=== PATIENT | female | born 1990 | race Caucasian/White ===

== ENCOUNTER 2023-09-23 19:30 | Emergency (ER) | payer OTHER, SELFPAY ==
[2023-09-23 19:31] VITALS: BP 164/79; PULSE 90; RESP 18; TEMP 36.6; O2SAT 98; BMI 52.4
[2023-09-23 20:01] VITALS: BP 145/71; PULSE 80; RESP 18; O2SAT 98
--- NOTE | 2023-09-23 20:07 | CT_ITS ---
PROCEDURE INFORMATION: Exam: CT Abdomen And Pelvis With Contrast Exam date and time: 09/23/2023 9:28 PM Age: 33 years old Clinical indication: Abdominal pain; Additional info: Rlq abd pain TECHNIQUE: Imaging protocol: Computed tomography of the abdomen and pelvis with contrast. Radiation optimization: All CT scans at this facility use at least one of these dose optimization techniques: automated exposure control; mA and/or kV adjustment per patient size (includes targeted exams where dose is matched to clinical indication); or iterative reconstruction. Contrast material: ISOVUE; Contrast volume: 75 ml; Contrast route: IV; COMPARISON: No relevant prior studies available. FINDINGS: Liver: Normal. No mass. Gallbladder and bile ducts: Postsurgical changes of cholecystectomy. Pancreas: Normal. No ductal dilation. Spleen: Normal. No splenomegaly. Adrenal glands: Normal. No mass. Kidneys and ureters: Normal. No hydronephrosis. Stomach and bowel: Unremarkable. No obstruction. No mucosal thickening. Appendix: No evidence of appendicitis. Intraperitoneal space: Unremarkable. No free air. No significant fluid collection. Vasculature: Unremarkable. No abdominal aortic aneurysm. Lymph nodes: Unremarkable. No enlarged lymph nodes. Urinary bladder: Unremarkable as visualized. Reproductive: Unremarkable as visualized. Bones/joints: Degenerative changes. No acute fracture. Soft tissues: Tiny fat containing umbilical hernia. IMPRESSION: No acute findings. No evidence of acute appendicitis.
--- NOTE | 2023-09-23 20:09 | [facility].EDGENADL ---
Discharge Plan Disposition Patient Disposition: Home, Self-Care Prescriptions Prescriptions: New ondansetron 4 mg tablet,disintegrating 4 mg PO Q6H PRN (Reason: nausea and vomiting) 5 Days Qty: 20 0RF No Action albuterol sulfate 90 mcg/actuation HFA aerosol inhaler 2 puff inhalation Q6H PRN (Reason: shortness of breath or wheezing) Qty: 8.5 10RF Rx Instructions: please provide spacer budesonide-formoterol [Symbicort] 160-4.5 mcg/actuation HFA aerosol inhaler 2 puff inhalation BID Qty: 10.2 12RF Rx Instructions: please provide instructions for spacer methylprednisolone [Medrol (Chris)] 4 mg tablets,dose pack See Rx Instructions PO PER PKG DIR Qty: 21 0RF Rx Instructions: PO PER PKG DIR cholecalciferol (vitamin D3) 50 mcg (2,000 unit) capsule 50 mcg PO DAILY Qty: 90 3RF dicyclomine 10 mg capsule 10 mg PO DAILY Qty: 90 3RF loratadine [Allergy Relief (loratadine)] 10 mg tablet 10 mg PO DAILY Qty: 90 3RF metoprolol succinate 50 mg tablet extended release 24 hr 50 mg PO DAILY Qty: 90 3RF omeprazole 40 mg capsule,delayed release(DR/EC) 40 mg PO DAILY Qty: 90 3RF Referrals Follow up/Referrals: Charles Herrera MD [Primary Care Provider] - See instructions Activity Restrictions/Add. Instructions Additional Instructions/Restrictions: No emergent medical condition identified today on your diagnostic evaluation. There remains some diagnostic uncertainty please follow-up with primary care doctor as needed. No obvious evidence of any inflammatory pathology on your CT scan specifically no evidence of appendicitis. Please take your nausea medicine Tylenol and ibuprofen return to the emergency department in 12 to 24 hours with any significant worsening of her symptoms high fevers or other concerns. Clinical Impressions Clinical Impression: Abdominal pain, RLQ, Nausea & vomiting Instructions Patient Instructions: DI for Acute Abdominal Pain Discharge ED Provider: Federico West General Adult HPI General Chief complaint: Abdominal Pain Stated complaint: RT side abd pain radiating to back Time Seen by Provider: 09/23/23 20:04 Mode of Arrival: Ambulatory Source of Information: Patient Limitations: No Limitations Description of Symptoms (Recalled from ER Triage Doc. by RN): Pt presents with right lower abdomen pain that began yesterday associated ith nausea and 2 episodes of vomiting, this evening the pain began to radiate into her lower right lumbar area. History of Present Illness HPI narrative: Patient is a 33-year-old female present today with right upper and right lower quadrant abdominal pain has been more slowly worsening over the last 24 hours. States she has had associated nausea vomiting no changes in bowel movements or urination. Has had a cholecystectomy in the past. Still has her appendix. She has not any vaginal bleeding or any other complaints from the standpoint. Related Data Previous Rx's Medication Instructions Recorded albuterol sulfate 90 mcg/actuation 2 puff inhalation Q6H PRN 09/18/23 aerosol inhaler shortness of breath or wheezing #8.5 grams budesonide-formoterol HFA 160 2 puff inhalation BID #10.2 grams 09/18/23 mcg-4.5 mcg/actuation aerosol inhaler (Symbicort) cholecalciferol (vitamin D3) 50 50 mcg PO DAILY #90 caps 09/18/23 mcg (2,000 unit) capsule dicyclomine 10 mg capsule 10 mg PO DAILY #90 caps 09/18/23 loratadine 10 mg tablet (Allergy 10 mg PO DAILY #90 tabs 09/18/23 Relief (loratadine)) methylprednisolone 4 mg tablets in See Rx Instructions PO PER PKG DIR 09/18/23 a dose pack (Medrol (Chris)) #21 tabs metoprolol succinate 50 mg 50 mg PO DAILY #90 tabs 09/18/23 tablet,extended release 24 hr omeprazole 40 mg capsule,delayed 40 mg PO DAILY #90 caps 09/18/23 release ondansetron 4 mg disintegrating 4 mg PO Q6H PRN nausea and 09/23/23 tablet vomiting 5 days #20 tabs Allergies Allergy/AdvReac Type Severity Reaction Status Date / Time amoxicillin Allergy Unknown Verified 09/18/23 09:39 Penicillins Allergy Unknown Verified 09/18/23 09:39 [facility] Disclaimer: The information contained in this section may have been updated after the patient was seen, as this information can be updated by other users. Medical History (Updated 09/23/23 @ 22:05 by Federico West MD) No significant medical problems Surgical History (Updated 09/18/23 @ 09:44 by JOSE MARIA Martell) History of cholecystectomy Social History (Updated 09/18/23 @ 09:44 by JOSE MARIA Martell) Smoking Status: Unknown if ever smoked alcohol intake: never current occupational status: employed and other Travel in the last 8 weeks: None ROS Obtained: Yes All systems reviewed & no additional complaints except as documented Physical Exam General General appearance: alert Respiratory Respiratory exam: Present normal lung sounds bilaterally Cardiovascular Cardiovascular exam: Present regular rate Abdominal Exam Abdominal exam: Present other (MaximalRight lower quadrant tenderness palpation patient is tenderness there is no rebound or guarding masses etc. for) Neurological Exam Neurological exam: Present alert Medical Decision Making Ashwin Inquiry Pt receiving controlled substance: No Vital Signs: 09/23/23 19:31 09/23/23 20:01 Temperature 97.8 F Temperature Source Oral Pulse Rate 80 Pulse Rate [Left] 90 Respiratory Rate 18 18 Blood Pressure 145/71 H Blood Pressure [Right Arm] 164/79 H Blood Pressure Mean 99 Blood Pressure Mean [Right Arm] 107 Blood Pressure Source [Right Arm] Automatic Cuff Blood Pressure Position [Right Arm] Sitting 02 Sat by Pulse Oximetry 98 98 Oxygen Delivery Method Room Air Room Air Lab Data Lab results reviewed: Yes I reviewed the patient's lab results. Lab Results 09/23/23 21:00: WBC 16.2 H, RBC 4.89, Hgb 13.1, Hct 38.7, MCV 79.0 L, MCH 26.8 L, MCHC 34.0, RDW 15.1, Plt Count 364, MPV 7.8, Neut % (Auto) 68.0, Lymph % (Auto) 24.9, [place] % (Auto) 3.7, Eos % (Auto) 2.8, Baso % (Auto) 0.7, Neut # (Auto) 11.0 H, Lymph # (Auto) 4.0, [place] # (Auto) 0.6, Eos # (Auto) 0.5 H, Baso # (Auto) 0.1, Total Counted 100, Neutrophils % (Manual) 70, Lymphocytes % (Manual) 24, Monocytes % (Manual) 5, Eosinophils % (Manual) 1, Platelet Estimate Normal, Microcytosis 1+, Sodium 136, Potassium 3.6, Chloride 104, Carbon Dioxide 25, Anion Gap 10.6, BUN 15, Creatinine 0.60, Estimated Creat Clear 125, Estimated GFR 115, Est GFR ( Amer) 139, Glucose 84, Calcium 8.1 L, Total Bilirubin 0.7, AST 31, ALT 29, Alkaline Phosphatase 62, Total Protein 6.5, Albumin 3.6, Globulin 2.9, Albumin/Globulin Ratio 1.2, Serum HCG, Qual Negative 09/23/23 21:10: Urine Color Yellow, Urine Appearance Clear, Urine pH 6.0, Ur Specific Johnson 1.025, Urine Protein Negative, Urine Glucose (UA) Negative, Urine Ketones Negative, Urine Blood Negative, Urine Nitrate Negative, Urine Bilirubin Negative, Urine Urobilinogen 0.2, Ur Leukocyte Esterase Negative, Urine RBC None, Urine WBC None, Ur Squamous Epith Cells 3-5, Urine Bacteria Trace 09/23/23 21:00 09/23/23 21:00 Orders (Tests/Meds): ED MEDICATIONS Generic Name Dose Route Start Last Admin Trade Name Freq PRN Reason Stop Dose Admin Sodium Chloride 10 ml 09/23/23 21:34 09/23/23 21:35 Sodium Chloride 0.9% 10ml Syr (Rad Only) IV 10/23/23 21:33 10 ml NEEDED PRN Administration Maintain IV Site Discontinued Medications Generic Name Dose Route Start Last Admin Trade Name Freq PRN Reason Stop Dose Admin Lactated Ringer's 1,000 mls @ 999 mls/hr 09/23/23 20:15 09/23/23 20:17 Lactated Ringer's 1000 Ml Bag IV 09/23/23 21:15 999 mls/hr .Q1H1M RADHA Administration Iopamidol 75 ml 09/23/23 21:34 09/23/23 21:35 Iopamidol-370 (76%);100ml Bottle IV 09/23/23 21:35 75 ml ONCE ONE Administration Morphine Sulfate 4 mg 09/23/23 20:07 09/23/23 20:17 Morphine 4mg/Ml Syringe IV 09/23/23 20:08 4 mg ONCE ONE Administration Ondansetron HCl 4 mg 09/23/23 20:07 09/23/23 20:17 Ondansetron 4mg/2ml Vial IV 09/23/23 20:08 4 mg ONCE ONE Administration ORDERS Category Date Time Status CT abdomen pelvis w con Stat Cat Scan 09/23/23 20:07 Completed CBC w/Auto Diff [Complete Blood Count Auto Diff] Stat Lab 09/23/23 21:00 Completed CMP [Comprehensive Metabolic Panel] Stat Lab 09/23/23 21:00 Completed HCG Qualitative, Serum Stat Lab 09/23/23 21:00 Completed UA [Urinalysis and Microscopic] Stat Lab 09/23/23 21:10 Completed Medical Decision Narrative: 33-year-old female initially presenting with what she describes right upper quadrant abdominal pain but on palpation she is maximally tender in the right lower quadrant. She has no urinary symptoms she has not had any bowel changes. Differential includes terminal ileitis, appendicitis, mesenteric adenitis, bowel obstruction, bowel gas pain. Gastroenteritis etc. Will get a CT scan for further evaluation IV fluids pain medicine nausea medicine has been administered will reassess. Reassessment 10:02 PM patient was feeling significantly better but still has a little bit of abdominal discomfort serial abdominal exam is benign at this point. CT scan performed at person interpreted also looked at radiology read and there is no evidence of any acute abnormality specifically no evidence of appendicitis or any other inflammatory condition. There is a nonspecific leukocytosis. Urinalysis unremarkable other than a leukocytosis no other abnormality on the labs. This is possibly viral in nature and spasmodic. No further emergent medical testing or treatment is needed at the moment. Zofran will be prescribed she has been advised to take Tylenol and ibuprofen follow-up with primary care doctor and return with any worsening symptoms. Critical Care Critical Care Time Critical Care Time: No
[2023-09-23] MEDS: MORPHINE 4MG/ML SYRINGE 4 MG IV (20:17)
[2023-09-23] MEDS: ONDANSETRON 4MG/2ML VIAL 4 MG IV (20:17)
[2023-09-23] MEDS: LACTATED RINGERS 1000ML 1,000 ML 999 ML IV (20:17)
[2023-09-23 21:20] LABS: Chloride 104 mmol/L (98-107); HCG Qualitative, Serum Negative (Negative); Potassium 3.6 mmoL/L (3.5-5.1); Sodium 136 mmol/L (136-145)
[2023-09-23 21:23] LABS: Alanine Aminotransferase 29 U/L (12-78); Albumin Level 3.6 g/dl (3.5-5.0); Albumin/Globulin Ratio 1.2 (1.1-1.8); Alkaline Phosphatase 62 U/L (38-126); Anion Gap 10.6 mEq/L (5-15); Aspartate Amino Transferase 31 U/L (14-36); Bilirubin,Total 0.7 mg/dl (0.2-1.3); Blood Urea Nitrogen 15 mg/dl (7-17); Calcium 8.1 mg/dl (8.4-10.2); Carbon Dioxide 25 mmol/L (22.0-30.0); Creatinine Clearance Estimated 125 mL/min (50-200); Estimated Glomerular Filt Rate 115 ml/min (>60); GFR (African American) 139 ML/MIN (>60); Globulin 2.9 g/dL (1.3-3.2); Glucose 84 mg/dl (74-100); Total Protein,Serum 6.5 g/dl (6.3-8.2)
[2023-09-23 21:27] LABS: Microscopic, Urine URINE MICROSCOPIC (MICROSCOPIC)
[2023-09-23 21:27] LABS: Basophils # 0.1 K/mm3 (0-0.2); Basophils % 0.7 % (0.1-2.0); Eosinophils # 0.5 K/mm3 (0.0-0.4); Eosinophils % 2.8 % (0.1-12.0); Hematocrit 38.7 % (37.0-47.0); Hemoglobin 13.1 g/dL (12.2-16.2); Lymphocytes % 24.9 % (10-50); Mean Corpuscular Hemoglobin 26.8 pg (27.0-31.2); Mean Platelet Volume 7.8 fl (7.4-10.4); Monocytes # 0.6 K/mm3 (0.1-1.0); Monocytes % 3.7 % (1.7-9.3); Platelet Count 364 K/mm3 (142-424); Red Blood Count 4.89 M/mm3 (4.20-5.40); Red Cell Distribution Width 15.1 % (11.5-17.5); White Blood Count 16.2 K/mm3 (4.8-10.8)
[2023-09-23 21:29] LABS: Appearance,Urine CLEAR (Clear); Bilirubin,Urine Negative (Negative); Blood, Urine Negative (Negative); Color,Urine YELLOW (Yellow); Glucose,Urine (UA) Negative (Negative); Ketones,Urine Negative (Negative); Leukocyte Esterase,Urine Negative (Negative); Nitrate,Urine Negative (Negative); Protein,Urine Negative (Negative); Specific Gravity, Urine 1.025 (1.005-1.030); Urobilinogen,Urine 0.2 EU/dl (0.2)
[2023-09-23 21:32] LABS: MANUAL DIFFERENTIAL MANUAL DIFFERENTIAL (MANUAL DIFF)
[2023-09-23] MEDS: IOPAMIDOL-370 (76%);100ML BOTTLE 75 ML IV (21:35)
[2023-09-23] MEDS: SODIUM CHLORIDE 0.9% 10ML SYR (RAD ONLY) 10 ML IV (21:35)
[2023-09-23 21:43] LABS: Eosinophils % 1 % (0-3); Lymphocytes % 24 % (10-50); Microcytosis 1+; Monocytes % 5 % (2-9); Neutrophils % 70 % (42-76); Platelet Estimate Normal; Total Cells Counted 100
[2023-09-23 21:45] LABS: Bacteria,Urine Trace /lpf
[2023-09-23 22:20] VITALS: BP 154/79; PULSE 89; RESP 18; TEMP 36.6; O2SAT 97
== END 2023-09-23 22:21 | disposition home or self-care (01) ==
PROVIDERS: Emergency Provider Student in an Organized Health Care Education/Training Program; PCP Family Medicine
DX: R10.11 Right upper quadrant pain (principal); R10.31 Right lower quadrant pain; R11.2 Nausea with vomiting, unspecified
CPT/HCPCS: 36415; 74177; 80053; 81001; 84703; 85007; 85025; 96361; 96374; 96375; 99285; J2405; Q9967

== ENCOUNTER 2023-10-23 18:36 | Outpatient (CLI) | payer OTHER, SELFPAY ==
[2023-10-23 17:36] LABS: Adenovirus,PCR Not Detected (NotDetected); Coronavirus 19, PCR Not Detected (NotDetected); Coronavirus 229E Not Detected (NotDetected); Coronavirus NL63 Not Detected (NotDetected); Coronavirus OC43 Not Detected (NotDetected); Coronovirus HKU1,PCR Not Detected (NotDetected); Human Metapneumovirus Not Detected (NotDetected); Influenza A, PCR Not Detected (NotDetected); Influenza AH1, 2009 Not Detected (NotDetected); Influenza AH1, PCR Not Detected (NotDetected); Influenza AH3,PCR Not Detected (NotDetected); Influenza B, PCR Not Detected (NotDetected); Parainfluenza 1, PCR Not Detected (NotDetected); Parainfluenza 2, PCR Not Detected (NotDetected); Parainfluenza 3, PCR Not Detected (NotDetected); Parainfluenza 4, PCR Not Detected (NotDetected); Respiratory Syncytial Virus Not Detected (NotDetected); Rhinovirus/Enterovirus Not Detected (NotDetected)
== END 2023-10-23 23:59 ==
LOC: LAB.DROPOF 18:37
PROVIDERS: PCP Nurse Practitioner; Visit Provider Nurse Practitioner
DX: J06.9 Acute upper respiratory infection, unspecified (principal); R51.9 Headache, unspecified; R11.2 Nausea with vomiting, unspecified; R19.7 Diarrhea, unspecified; R50.9 Fever, unspecified; R05.9 Cough, unspecified; R09.81 Nasal congestion
CPT/HCPCS: 87632; 87635

== ENCOUNTER 2024-04-13 10:50 | Outpatient (CLI) | payer OTHER, SELFPAY ==
[2024-04-13 19:23] LABS: Thyroid Stimulating Hormone 1.45 uIU/mL (0.465-4.68)
== END 2024-04-13 23:59 | disposition home or self-care (01) ==
LOC: LAB.DROPOF 04-14 09:15
PROVIDERS: PCP Family Medicine; Visit Provider Family Medicine
DX: M79.604 Pain in right leg (principal); R11.2 Nausea with vomiting, unspecified; E66.01 Morbid (severe) obesity due to excess calories; Z68.43 Body mass index [BMI] 50.0-59.9, adult
CPT/HCPCS: 84443